=== PATIENT | male | born 1990 | race African-American/Black ===

== ENCOUNTER 2017-01-29 10:24 | Emergency (ER) | payer SELFPAY ==
[~2017-01-29] VITALS: Ht 172.7 cm; Wt 136.4 kg
[2017-01-29 10:25] VITALS: BP 154/93
[2017-01-29] MEDS ORDERED: AUGM875T28 PO (10:52)
[2017-01-29] MEDS ORDERED: IBUP-1022 PO (10:52)
== END 2017-01-29 11:17 | disposition home or self-care (01) ==
LOC: M ED 10:24
DX: H66.003 Acute suppurative otitis media without spontaneous rupture of ear drum, bilateral (principal); R73.03 Prediabetes

== ENCOUNTER 2017-06-30 09:38 | Emergency (ER) | payer OTHER, MEDICAID, SELFPAY ==
[2017-06-30] MEDS: IBUPROFEN 800 MG TAB PO (10:15)
[2017-06-30] MEDS: METHOCARBAMOL 500 MG TAB PO (10:15)
== END 2017-06-30 10:21 | disposition home or self-care (01) ==
LOC: M ED 09:38
DX: S39.012A Strain of muscle, fascia and tendon of lower back, initial encounter (principal); S16.1XXA Strain of muscle, fascia and tendon at neck level, initial encounter; W01.0XXA Fall on same level from slipping, tripping and stumbling without subsequent striking against object, initial encounter; Y92.099 Unspecified place in other non-institutional residence as the place of occurrence of the external cause; Y93.9 Activity, unspecified; G47.30 Sleep apnea, unspecified; E11.9 Type 2 diabetes mellitus without complications
CPT/HCPCS: 99282

== ENCOUNTER 2018-07-12 13:58 | Emergency (ER) | payer OTHER ==
[~2018-07-12] VITALS: Ht 172.7 cm; Wt 146.4 kg
[~2018-07-12 13:58] MED LIST: AUGM875T28 PO; IBUP-1022 PO; IBUP80TA PO; ROBA500T PO
[2018-07-12] MEDS ORDERED: ERYTOIN8 OS (16:52)
[2018-07-12 16:59] VITALS: BP 136/77
== END 2018-07-12 17:03 | disposition home or self-care (01) ==
LOC: M ED 13:58
DX: H00.024 Hordeolum internum left upper eyelid (principal); E11.9 Type 2 diabetes mellitus without complications; G47.33 Obstructive sleep apnea (adult) (pediatric)

== ENCOUNTER 2018-08-12 08:55 | Emergency (ER) | payer OTHER ==
[~2018-08-12] VITALS: Ht 172.7 cm; Wt 151.1 kg
[~2018-08-12 08:55] MED LIST changes: +ERYTOIN8 OS
[2018-08-12 10:50] LABS: INFLUENZA A AMPLIFICATION NEGATIVE (NEGATIVE); INFLUENZA B AMPLIFICATION NEGATIVE (NEGATIVE)
[2018-08-12] MEDS ORDERED: MAGICMW SSP (12:05)
[2018-08-12] MEDS ORDERED: FLON1SPR NARES (12:05)
[2018-08-12] MEDS ORDERED: ALL10TAB28 PO (12:06)
[2018-08-12 12:12] VITALS: BP 137/84
== END 2018-08-12 12:15 | disposition home or self-care (01) ==
LOC: M ED 08:55
DX: J06.9 Acute upper respiratory infection, unspecified (principal); E11.9 Type 2 diabetes mellitus without complications; G47.33 Obstructive sleep apnea (adult) (pediatric)

== ENCOUNTER 2018-09-27 08:55 | Emergency (ER) | payer OTHER ==
[~2018-09-27] VITALS: Ht 172.7 cm; Wt 150.0 kg
[~2018-09-27 08:55] MED LIST changes: +ALL10TAB28 PO; +FLON1SPR NARES; +MAGICMW SSP
[2018-09-27 11:04] VITALS: BP 140/100
== END 2018-09-27 11:12 | disposition home or self-care (01) ==
LOC: M ED 08:55
DX: G47.33 Obstructive sleep apnea (adult) (pediatric) (principal); E11.9 Type 2 diabetes mellitus without complications

== ENCOUNTER → 2019-08-30 | Outpatient (CLI) | payer OTHER ==
[~2019-08-30] MED LIST changes: -ALL10TAB28 PO; +ALL10TAB29 PO
--- NOTE | 2019-08-31 16:22 | SLEEPCENT ---
DATE OF PROCEDURE: 08/30/2019 ORDERED BY: GISELLA Castanon Nocturnal polysomnography was performed for the titration pressure therapy in this patient with obstructive sleep apnea syndrome. Apnea-hypopnea index of 21. For testing a [employer]Med Mirage Quattro full-face mask of medium size was used; 4 cm of water pressure were applied to the circuit and the lights were extinguished. 8 hours and 12 minutes of data were reviewed. There were 427.5 minutes of sleep identified. Sleep latency was mildly dilated of 12.5 minutes. Rapid eye movement (REM) latency was normal at 78 minutes. Sleep architecture was fairly good with five REM cycles. Overall sleep efficiency was 87%. The patient's electrocardiogram showed a sinus rhythm with an average heart rate of 66 beats per minute. Electroencephalogram (EEG) showed normal waveforms for awake and sleep. Persistent respiratory events prompted an increases in CPAP pressure. Various pressures were attempted. Best sleep was seen on CPAP pressure of 16. There was minimal limb activity. Some snoring was noted despite pressure therapy. IMPRESSION: Obstructive sleep apnea syndrome (G47.33). RECOMMENDATIONS: Nightly use of pressure therapy 16 cm of water.
== END ==
LOC: M SLEEP 20:00
PROVIDERS: ATTEND Nurse Practitioner Family
DX: G47.33 Obstructive sleep apnea (adult) (pediatric) (principal)

== ENCOUNTER 2019-10-13 12:01 | Emergency (ER) | payer OTHER ==
[~2019-10-13] VITALS: Ht 172.7 cm; Wt 152.4 kg
[2019-10-13 12:38] LABS: HEMATOCRIT 39.7 % (42.0-52.0); HEMOGLOBIN 12.7 g/dl (13.5-17.5); MEAN CORPUSCULAR HEMOGLOBIN 28.3 pg (27.0-33.0); MEAN CORPUSCULAR VOLUME 88.4 fl (80.0-96.0); PLATELET COUNT, AUTOMATED 319 10^3/uL (150-450); RED BLOOD COUNT 4.49 10^6/uL (4.30-6.10)
[2019-10-13 13:17] LABS: BLOOD UREA NITROGEN 9 MG/DL (7-18); CALCIUM LEVEL 8.9 MG/DL (8.5-10.1); CARBON DIOXIDE LEVEL 28 MEQ/L (21-32); CHLORIDE LEVEL 104 MEQ/L (98-107); CREATININE FOR GFR 0.82 MG/DL (0.70-1.30); GLOMERULAR FILTRATION RATE > 60.0 (>60); GLUCOSE, FASTING 98 MG/DL (70-100); POTASSIUM SERUM 4.2 MEQ/L (3.5-5.1); SODIUM LEVEL 139 MEQ/L (136-145)
--- NOTE | 2019-10-13 13:48 | REP ---
Left lower extremity Duplex Doppler venous ultrasound: Real time compression and duplex Doppler interrogation of the left lower extremity deep venous system is performed. The left common femoral, superficial femoral and popliteal veins are fully compressible with transducer pressure and demonstrate normal spontaneous and phasic flow, without evidence of deep venous thrombosis. Impression: No evidence of deep venous thrombosis of the left lower extremity femoral popliteal venous system. Electronically Signed by Chapo Sandy MD 10/13/2019 01:39 P
[2019-10-13 14:15] VITALS: BP 119/67
== END 2019-10-13 14:16 | disposition home or self-care (01) ==
LOC: M ED 12:01
DX: M79.89 Other specified soft tissue disorders (principal); E11.9 Type 2 diabetes mellitus without complications; I10 Essential (primary) hypertension; G47.33 Obstructive sleep apnea (adult) (pediatric)

== ENCOUNTER → 2021-07-24 | Outpatient (CLI) | payer OTHER ==
[~2021-07-24] MED LIST changes: -ALL10TAB29 PO; +CETI-24 PO
== END ==
LOC: M RAD 08:17
PROVIDERS: ATTEND Nurse Practitioner Family
DX: M25.562 Pain in left knee (principal)

== ENCOUNTER → 2022-06-15 | Outpatient (REF) | payer OTHER ==
[2022-06-15 14:29] LABS: CHOLESTEROL RISK RATIO 5.63 (<5)
== END ==
LOC: M LAB REF 12:39
PROVIDERS: ATTEND Nurse Practitioner Family
DX: R79.89 Other specified abnormal findings of blood chemistry (principal)

== ENCOUNTER 2022-07-08 10:04 | Emergency (ER) | payer OTHER ==
[~2022-07-08] VITALS: Ht 172.7 cm; Wt 148.0 kg
[2022-07-08] MEDS ORDERED: ERGO500029 (10:10)
[2022-07-08] MEDS ORDERED: LISI5TAB11 (10:10)
[2022-07-08] MEDS ORDERED: AMOX875T2 PO (12:29)
[2022-07-08] MEDS ORDERED: BENZ1LOZ9 PO (12:31)
[2022-07-08 12:40] VITALS: BP 118/63
== END 2022-07-08 12:41 | disposition home or self-care (01) ==
LOC: M ED 10:04
DX: H65.03 Acute serous otitis media, bilateral (principal); J02.9 Acute pharyngitis, unspecified; B34.9 Viral infection, unspecified; G47.33 Obstructive sleep apnea (adult) (pediatric); I10 Essential (primary) hypertension; E66.9 Obesity, unspecified; Z79.899 Other long term (current) drug therapy

== ENCOUNTER 2024-04-07 18:07 | Emergency (ER) | payer OTHER ==
[~2024-04-07] VITALS: Ht 172.7 cm; Wt 161.0 kg
[~2024-04-07 18:07] MED LIST changes: +AMOX875T2 PO; +BENZ1LOZ9 PO; +ERGO500029; +LISI5TAB11
[2024-04-07 18:11] VITALS: TEMP 96.8
[2024-04-07] MEDS: ASPIRIN 325 MG TAB PO ONE (20:02)
[2024-04-07] MEDS: hydrALAZINE 20MG/ML 1ML VIAL IV STA (20:02)
[2024-04-07 20:04] LABS: BASO % 0.1 % (0.0-1.0); EOS # 0.1 10^3/uL (0.0-0.5); EOS % 1.2 % (0.0-3.0); HEMATOCRIT 40.8 % (42.0-52.0); HEMOGLOBIN 13.4 g/dl (13.5-17.5); LYMPH # 2.5 10^3/uL (1.5-5.0); LYMPH % 29.9 % (24.0-44.0); MEAN CORPUSCULAR HEMOGLOBIN 28.4 pg (27.0-33.0); MEAN CORPUSCULAR HGB CONC 32.8 g/dl (32.0-36.5); MEAN CORPUSCULAR VOLUME 86.4 fl (80.0-96.0); MONO # 0.4 10^3/uL (0.0-0.8); MONO % 5.4 % (2.0-8.0); NEUTROPHILS # 5.1 10^3/uL (1.5-8.5); NEUTROPHILS % 62.7 % (36.0-66.0); PLATELET COUNT, AUTOMATED 302 10^3/uL (150-450); RED BLOOD COUNT 4.72 10^6/uL (4.30-6.10); WHITE BLOOD COUNT 8.2 10^3/uL (4.0-10.0)
[2024-04-07 20:25] LABS: BLOOD UREA NITROGEN 6 MG/DL (9-23); CARBON DIOXIDE LEVEL 27 MMOL/L (20-31); CHLORIDE LEVEL 104 MMOL/L (98-107); CK-MB VALUE MASS < 1.0 NG/ML (<3.6); CREATININE FOR GFR 0.59 MG/DL (0.70-1.30); GLOMERULAR FILTRATION RATE > 60.0 (>60); GLUCOSE, FASTING 123 MG/DL (60-100); POTASSIUM SERUM 4.6 MMOL/L (3.5-5.1); SODIUM LEVEL 137 MMOL/L (136-145)
[2024-04-07 20:30] LABS: CPK CREATINE PHOSPHOKINASE 96 U/L (46-171); FREE T4 1.04 NG/DL (0.89-1.76); MB/CK RELATIVE INDEX 1.04 (< OR =4); THYROID STIMULATING HORMONE 1.723 uIU/ML (0.55-4.78)
[2024-04-07 21:17] VITALS: BP 171/86
[2024-04-07] MEDS: amLODIPine 5 MG TAB PO ONE (21:17)
[2024-04-07 21:37] LABS: CK-MB VALUE MASS < 1.0 NG/ML (<3.6)
[2024-04-07 21:42] LABS: CPK CREATINE PHOSPHOKINASE 100 U/L (46-171)
[2024-04-07] MEDS: KETOROLAC 30 MG/ML 1ML VIAL IV ONE (22:15)
[2024-04-07] MEDS ORDERED: AMLO25TA PO (23:03)
[2024-04-07 23:15] VITALS: BP 135/70; O2SAT 97
== END 2024-04-07 23:22 | disposition home or self-care (01) ==
LOC: M ED 18:07
DX: R07.9 Chest pain, unspecified (principal); R51.9 Headache, unspecified; I16.0 Hypertensive urgency; I10 Essential (primary) hypertension; I44.0 Atrioventricular block, first degree; I44.4 Left anterior fascicular block; I45.10 Unspecified right bundle-branch block; Z79.2 Long term (current) use of antibiotics; Z79.811 Long term (current) use of aromatase inhibitors; Z79.899 Other long term (current) drug therapy
CPT/HCPCS: 70450; 71046; 80047; 80048; 82550; 82553; 83880; 84439; 84443; 84484; 85025; 87486; 87581; 87633; 87798; 93005; 93041; 94760; 96374; 96375; 99285; J0360; J1885

== ENCOUNTER 2024-12-28 19:00 | Emergency (ER) | payer OTHER ==
[~2024-12-28] VITALS: Ht 172.7 cm; Wt 149.6 kg
[~2024-12-28 19:00] MED LIST changes: +AMLO25TA PO
[2024-12-28 21:10] VITALS: BP 160/90; TEMP 97; O2SAT 98
== END 2024-12-28 23:15 | disposition left against medical advice (07) ==
LOC: M ED 19:00
DX: Z53.21 Procedure and treatment not carried out due to patient leaving prior to being seen by health care provider (principal)

== ENCOUNTER → 2025-01-08 | Outpatient (REF) | payer OTHER ==
[~2025-01-08] MED LIST changes: -IBUP-1022 PO; +IBUP600T42 PO
[2025-01-08 12:34] LABS: CREATININE, URINE 200.8 MG/DL; MALB URINE SIEMENS 30.0 MG/L; MAU/CREAT RATIO 14.9 MCG/MG (0.0-30.0)
== END ==
LOC: M LAB REF 11:43
PROVIDERS: ATTEND Student in an Organized Health Care Education/Training Program
DX: I10 Essential (primary) hypertension (principal)

== ENCOUNTER → 2025-04-09 | Outpatient (CLI) | payer OTHER | LOC: M RAD 10:29 | PROVIDERS: ATTEND Student in an Organized Health Care Education/Training Program | DX: M79.671 Pain in right foot (principal); M79.672 Pain in left foot ==